=== PATIENT | male | born 1960 | race Caucasian/White ===

== ENCOUNTER 2019-04-26 09:35 | Inpatient (IN) | payer BC, OTHER ==
[2019-04-26] MEDS ORDERED: IV FLUID CONTINUATION 1,000 ML IV ONE (09:45)
[2019-04-26] MEDS ORDERED: LIDOCAINE 1% INJ 10MG/ML (20 ML MDV) ONE (09:52)
[2019-04-26] MEDS ORDERED: LIDOCAINE 1% INJ 10MG/ML (20 ML MDV) SQ ONE (09:55)
[2019-04-26] MEDS ORDERED: HEPARIN SODIUM 1,000 UN/ML (10ML VL) ONE ×2 (10:08→10:55)
[2019-04-26] MEDS ORDERED: HEPARIN SODIUM 1,000 UN/ML (10ML VL) IV ONE ×2 (10:10→10:58)
[2019-04-26] MEDS ORDERED: METOPROLOL TARTRATE 5 MG/5 ML VIAL IVP ONE ×2 (10:17→10:21)
[2019-04-26] MEDS ORDERED: NITROGLYCERIN 1000MCG/10ML SYRINGE INTRACORON ONE (10:31)
[2019-04-26] MEDS ORDERED: FUROSEMIDE 10 MG/ML 4 ML VIAL ONE (10:43)
[2019-04-26] MEDS ORDERED: TICAGRELOR 90 MG TAB ONE (10:43)
[2019-04-26] MEDS ORDERED: MORPHINE SULFATE 4 MG/ML SYRINGE ONE (10:45)
[2019-04-26] MEDS ORDERED: TICAGRELOR 90 MG TAB PO ONE (10:54)
[2019-04-26] MEDS ORDERED: MORPHINE SULFATE 4 MG/ML SYRINGE IV ONE (10:55)
[2019-04-26] MEDS ORDERED: FUROSEMIDE 10 MG/ML 4 ML VIAL IV ONE (10:55)
[2019-04-26] MEDS ORDERED: IOPAMIDOL-370 100ML BTL INJ ONE ×2 (10:57)
[2019-04-26] MEDS ORDERED: FUROSEMIDE 100 MG in SODIUM CHLORIDE 0.9% 90 ML IV SCH (11:30)
[2019-04-26 11:54] LABS: Glucose,Whole Blood 189 mg/dL (75-99)
[2019-04-26] MEDS ORDERED: HEPARIN SODIUM,PORCINE 5,000 UNIT/ML 1 ML VIAL IV STA (12:05)
[2019-04-26] MEDS ORDERED: HEPARIN SODIUM,PORCINE 5,000 UNIT/ML 1 ML VIAL IV PRN (12:32)
[2019-04-26] MEDS ORDERED: HEPARIN SOD,PORK IN 0.45% NACL 25,000 UNIT in 0.45% NACL 1 250ML.BAG IV SCH (12:45)
--- NOTE | 2019-04-26 13:01 | ECHOF ---
Referral Reason:triple vessel disease MEASUREMENTS -------- HEIGHT: 180.3 cm WEIGHT: 117.9 kg BP: 120/76 IVSd: 1.7 cm (0.6 - 1.1) LVIDd: 4.9 cm (3.9 - 5.3) LVPWd: 1.5 cm (0.6 - 1.1) IVSs: 1.7 cm LVIDs: 4.6 cm LVPWs: 1.4 cm LAESV Index (A-L): 19.45 ml/m Ao Diam: 3.3 cm (2.0 - 3.7) AV Cusp: 2.3 cm (1.5 - 2.6) LA Diam: 3.4 cm (2.7 - 3.8) MV E Robert: 0.41 m/s MV DecT: 265 ms MV A Robert: 0.67 m/s MV E/A Ratio: 0.61 FINDINGS -------- Sinus rhythm. This was a technically difficult study with suboptimal apical views. The left ventricular size is normal. There is moderate concentric left ventricular hypertrophy. T here is severe global hypokinesis of LV . Overall left ventricular systolic function is severely im paired with, an EF < 20%. Mitral Doppler inflow pattern suggests diastolic filling abnormality {E/E '}. Apical anterior LV wall motion is akinetic. Apical lateral LV wall motion is akinetic. Ap ical inferior LV wall motion is akinetic. Inferior Hypokinesis apical thrombus noted The right ventricle is normal in size. Normal LA size by volume 22+/-6 ml/m2. The right atrium was not well visualized. 5.0mg of Lumason was utilized for enhancement of images Interatrial and interventricular septum intact. The aortic valve is trileaflet and appears structurally normal. There is no evidence of aortic regu rgitation. There is no evidence of aortic stenosis. Mild mitral regurgitation is present. Mild tricuspid regurgitation present. There is no evidence of pulmonary hypertension. The right v entricular systolic pressure, as measured by Doppler, is {RVSP}. The mass is located in the apical portion of the left ventricle. The aortic root size is normal. IVC Not well visulized. There is no pericardial effusion. CONCLUSIONS -------- 1. Sinus rhythm. 2. This was a technically difficult study with suboptimal apical views. 3. The left ventricular size is normal. 4. There is severe global hypokinesis of LV . 5. Overall left ventricular systolic function is severely impaired with, an EF < 20%. 6. Mitral Doppler inflow pattern suggest diastolic filling abnormality {E/E'}. 7. Apical anterior LV wall motion is akinetic. 8. Apical lateral LV wall motion is akinetic. 9. Apical inferior LV wall motion is akinetic. 10. Inferior Hypokinesis 11. The right ventricle is normal in size. 12. Normal LA size by volume 22+/-6 ml/m2. 13. The right atrium was not well visualized. 14. 5.0mg of Lumason was utilized for enhancement of images 15. Interatrial and interventricular septum intact. 16. The aortic valve is trileaflet and appears structurally normal. 17. There is no evidence of aortic regurgitation. 18. There is no evidence of aortic stenosis. 19. Mild mitral regurgitation is present. 20. Mild tricuspid regurgitation present. 21. There is no evidence of pulmonary hypertension. 22. The right ventricular systolic pressure, as measured by Doppler, is {RVSP}. 23. The mass is located in the apical portion of the left ventricle- possibly apical thrombus 24. The aortic root size is normal. 25. IVC Not well visulized. 26. There is no pericardial effusion. DIGITAL CONTENT SPECIALIST: Fifi Dsouza RDCS
--- NOTE | 2019-04-26 14:30 | CONS ---
CONSULTATION CHIEF COMPLAINT: Epigastric pain. This is a 59-year-old gentleman with no significant past medical history who presented to [facility] Emergency Room complaining of epigastric pain. This has been going on for the last week and for the last 2 days has been getting particularly worse. The pain goes up into his chest, burning discomfort associated with some shortness of breath. It is moderate to severe intensity. He had an EKG in the emergency room there that showed evidence of acute inferior wall myocardial infarction. Due to this, he is transferred to [facility] for emergent cardiac catheterization and angioplasty. 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 Patient appears unstable hemodynamically, does not seem to be in any distress.He is tachycardia and somewhat hyppotensive PAST MEDICAL HISTORY: Negative for hypertension, diabetes, dyslipidemia. MEDICATIONS: None. ALLERGIES: None. FAMILY HISTORY: Negative for premature coronary artery disease. SOCIAL HISTORY: Negative for smoking, EtOH abuse, or drug abuse. REVIEW OF SYSTEMS: HEENT: Unremarkable. CARDIOVASCULAR: As described above. RESPIRATORY: Negative. GI: Negative. GENITOURINARY: Negative. ALLERGY/IMMUNOLOGIC: Negative. SKIN: Negative. MUSCULOSKELETAL: Negative. ENDOCRINE: Negative. DERM: Negative. CONSTITUTIONAL: Negative. ONCOLOGICAL: Negative. Rest of the system review is not relevant. EXAM: Patient is comfortable at rest. sinus tachycardia There is no jugular venous distention. Carotid upstroke is normal. There is no bruit. Chest exam reveals good air entry bilaterally. Heart exam reveals first and second heart sounds. No gallop. No murmur. No rub. Abdomen is soft, nontender. Examination of extremities did not reveal any edema. Peripheral pulses are felt. Labs are not available to me at this time. ASSESSMENT: Acute inferior wall myocardial infarction. cardiogenic shock PLAN: Patient will undergo emergent cardiac catheterization with a view to performing angioplasty. The patient understands risks, benefits. MMODL / IJN: [id number] / MTDD
--- NOTE | 2019-04-26 14:33 | CC ---
CARDIAC CATHETERIZATION REPORT INDICATION: Acute inferior wall myocardial infarction with cardiogenic shock. This is a 59-year-old gentleman who is transferred from [facility] Emergency Room with acute inferior wall myocardial infarction. I evaluated him for the first time in the laborer livestock. While the patient appeared stable symptom-benitez, his blood pressure is at the low end of the normal and he is tachycardiac with heart rates in the 120s per minute. The patient was advised emergent cardiac catheterization. He understood risks, benefits. PROCEDURE NOTE: After obtaining informed consent, left heart catheterization and coronary angiogram were performed via the right femoral artery using standard Mark catheters. The patient tolerated the procedure well without any obvious immediate complications. FINDINGS: Central aortic pressure is 110/70 mm. ANGIOGRAPHIC DATA: Left main coronary artery: Left main coronary appears calcified but is free of stenosis. Divides into left anterior descending coronary artery and circumflex coronary artery. Circumflex coronary artery is totally occluded in its proximal part. LAD: Shows a 95% stenosis in its midportion and is diffusely diseased. There are left- to-right collaterals to the distal RCA. Right coronary artery is totally occluded in its midportion. CONCLUSION: Severe three-vessel coronary artery disease with acutely occluded mid right coronary artery, chronic occlusion of the circumflex coronary artery and severe stenosis involving LAD with extensive collaterals to the distal RCA. PLAN: Patient will undergo angioplasty with stent placement to the right coronary artery. The patient's prognosis is guarded with high morbidity and mortality given the severe multivessel coronary artery disease and the elevated heart rates and hypotension on initial presentation. The patient's troponin was 2.5 and it is unclear if he already infarcted. We will know as we follow the troponins. We will also obtain a 2D echo on him. MMODL / IJN: [id number] /
[2019-04-26 14:43] VITALS: PULSE 95; RESP 26
--- NOTE | 2019-04-26 19:15 | PTCA ---
PERCUTANEOUSTRANS CORORONARY ANGIOGRAPHY DATE OF SERVICE: .04/26/2019. PROCEDURE: 1. PTCA and stenting of totally occluded proximal RCA in the setting of an acute ST- elevation CA. 2. Assessment of left ventricular pressures. PERFORMED BY: Dr. Casandra Nicholas. Moderate conscious sedation time was 44 minutes. Patient was administered Versed. His oxygen saturation, hemodynamics and EKG were monitored closely. CLINICAL INFORMATION: Mr. Eriberto Logan is a patient transferred from [facility] with acute inferior ST-elevation CA. He was seen and evaluated by Dr. Lynn who performed the cardiac cath which revealed total occlusion of the RCA, total occlusion of the circumflex and diffusely diseased to 90% lesions involving the LAD as well as diagonal branch. He was advised intervention of the RCA which was thought to be an acute occlusion. I proceeded to perform the intervention expeditiously. Patient's blood pressure was about 110, but he was tachycardic suggestive of an impending cardiogenic shock type picture. PROCEDURE NOTE: The existing 6-Welsh introducer in the right femoral artery was used to perform procedure. I used a standard right Mark guide catheter to cannulate the right coronary artery. A run-through wire was used to cross the lesion. Initially I used a 2.5 caliber 12 mm Trek balloon to open the lesion. Re-perfusion was accomplished in about 1 hour 40 minutes from the time he came to the emergency room at [facility]. I then deployed 2 stents of 3.25 caliber, an 18 mm distally and an 8 mm proximally at the site of total occlusion. Excellent angiographic result was achieved with good flow. The patient received intravenous heparin 8000 units and his ACT was 253. Additional 3500 units of heparin was also given. I then noted that in the proximal portion of the RCA just after the ostium, there was another area that looked almost like a flap with the stenosis of more than 50%. This was addressed with another 12 mm long, 3.25 caliber Xience drug-eluting stent that was deployed at 13 atmospheres. Excellent angiographic result was achieved. The sheath was sutured. The left ventricle end-diastolic pressure was measured with the pigtail catheter and this was about 32 mmHg without any gradient across aortic valve. The patient received 40 mg of Lasix and also received 1 mg of morphine and a non-rebreather 100% oxygen. With this his saturation came up to 92%. This patient has a significant LV impairment based on looking at the angiograms. I am recommending that he should be transferred to [facility] where they can unload the left atrium and this may be necessary either with a tandem heart or an Impella device. I discussed this with the patient as well as his and Dr. Lynn and patient will be hopefully transferred later on today. He will be sent to the ICU with a non-rebreather mask. His blood pressure is about 118 or 110 systolic and heart rate is about 99, sinus. Prognosis remains guarded given his diffuse disease in all his vessels and also impaired LV function based on the angiographic assessment and also high end-diastolic pressures. The patient and his understand the prognosis is poor. I also spoke to the director of strategic sales, Dr. May. JOSE LUIS / MICHOACANO: [id number] /
[2019-04-26] MEDS ORDERED: TICAGRELOR 90 MG TAB PO SCH (21:00)
[2019-04-27] MEDS ORDERED: ATORVASTATIN 80 MG TAB PO SCH (09:00)
[2019-04-27] MEDS ORDERED: ASPIRIN 81 MG PO SCH (09:00)
== END 2019-04-26 15:29 | disposition short-term general hospital (02) | DRG 246 ==
LOC: 2SICU 09:35
PROVIDERS: ADMIT Family Medicine; ATTEND Family Medicine
PROC: 4A023N7 Measurement of Cardiac Sampling and Pressure, Left Heart, Percutaneous Approach (ICD-10-PCS; 2019-04-26)
PROC: B2111ZZ Fluoroscopy of Multiple Coronary Arteries using Low Osmolar Contrast (ICD-10-PCS; 2019-04-26)
PROC: 027036Z Dilation of Coronary Artery, One Artery with Three Drug-eluting Intraluminal Devices, Percutaneous Approach (ICD-10-PCS; principal; 2019-04-26 09:39)
PROC: B2151ZZ Fluoroscopy of Left Heart using Low Osmolar Contrast (ICD-10-PCS; 2019-04-26 09:39)
DX: I21.19 ST elevation (STEMI) myocardial infarction involving other coronary artery of inferior wall (principal); R57.0 Cardiogenic shock; I25.10 Atherosclerotic heart disease of native coronary artery without angina pectoris
CPT/HCPCS: 93306; 93458; C1874